=== PATIENT | male | born 1940 | race Caucasian/White ===

== ENCOUNTER 2016-07-30 07:40 | Outpatient (CLI) | payer MEDICARE, OTHER | END 2016-07-30 07:41 | disposition home or self-care (01) | DX: N18.9 Chronic kidney disease, unspecified (principal) ==

== ENCOUNTER 2016-09-26 07:00 | Outpatient (CLI) | payer MEDICARE, OTHER | END 2016-09-26 07:01 | disposition home or self-care (01) | LOC: LAB.R 07:00 | PROVIDERS: ATTEND Internal Medicine | DX: R19.7 Diarrhea, unspecified (principal) ==

== ENCOUNTER 2016-10-30 10:26 | Outpatient (CLI) | payer MEDICARE, OTHER ==
[2016-10-30 15:45] LABS: CALCIUM 9.4 mg/dL (8.5-10.3); CREATININE 1.4 mg/dL (0.6-1.2); POTASSIUM 3.6 mmol/L (3.5-5.0)
[2016-10-30 15:47] LABS: BASOPHILS % (AUTO) 0.6 %; EOSINOPHILS # (AUTO) 0.1 10^3/uL (0.0-0.7); EOSINOPHILS % (AUTO) 1.7 %; HCT - HEMATOCRIT 44.2 % (42.0-52.0); HGB - HEMOGLOBIN 15.1 g/dL (14.0-18.0); LYMPHOCYTES # (AUTO) 0.4 10^3/uL (1.5-3.5); LYMPHOCYTES % (AUTO) 10.7 %; MEAN CORPUSCULAR HEMOGLOBIN 33.1 pg (27.0-31.0); MEAN CORPUSCULAR HGB CONC 34.2 g/dL (32.0-36.0); MEAN PLATELET VOLUME 8.3 fL (7.4-11.4); MONOCYTES # (AUTO) 0.4 10^3/uL (0.0-1.0); MONOCYTES % (AUTO) 9.8 %; NEUTROPHILS # (AUTO) 2.9 10^3/uL (1.5-6.6); NEUTROPHILS % (AUTO) 77.2 %; RED BLOOD COUNT 4.56 10^6/uL (4.70-6.10); RED CELL DISTRIBUTION WIDTH 13.1 % (12.0-15.0); UNCORRECTED WHITE BLOOD COUNT 3.8 x10^3/uL; WHITE BLOOD COUNT 3.8 x10^3/uL (4.8-10.8)
== END 2016-10-30 10:27 | disposition home or self-care (01) ==
LOC: LAB.R 10:26
PROVIDERS: ATTEND Urology
DX: C61 Malignant neoplasm of prostate (principal)
CPT/HCPCS: 80048; 85025

== ENCOUNTER 2017-09-03 10:15 | Outpatient (CLI) | payer MEDICARE, OTHER | END 2017-09-03 10:16 | disposition home or self-care (01) | LOC: LAB 10:15 | PROVIDERS: ATTEND Internal Medicine | DX: C61 Malignant neoplasm of prostate (principal) | CPT/HCPCS: 36415; 84153 ==

== ENCOUNTER 2017-11-24 15:35 | Outpatient (CLI) | payer MEDICARE, OTHER | END 2017-11-24 15:36 | disposition home or self-care (01) | LOC: LAB 15:35 | PROVIDERS: ATTEND Internal Medicine | DX: C61 Malignant neoplasm of prostate (principal) | CPT/HCPCS: 36415; 84153 ==

== ENCOUNTER 2018-03-05 10:03 | Outpatient (CLI) | payer MEDICARE, OTHER | END 2018-03-05 10:04 | disposition home or self-care (01) | LOC: LAB 10:03 | PROVIDERS: ATTEND Internal Medicine | DX: C61 Malignant neoplasm of prostate (principal) | CPT/HCPCS: 36415; 84153 ==

== ENCOUNTER 2018-09-13 10:16 | Outpatient (CLI) | payer MEDICARE, OTHER ==
[2018-09-13 17:21] LABS: CREATININE 1.3 mg/dL (0.6-1.2)
== END 2018-09-13 10:17 | disposition home or self-care (01) ==
LOC: LAB.F 10:16
PROVIDERS: ATTEND Internal Medicine
DX: I10 Essential (primary) hypertension (principal); Z13.9 Encounter for screening, unspecified
CPT/HCPCS: 36415; 82374; 82565; 84132; 84295; 84520

== ENCOUNTER 2019-03-31 09:53 | Outpatient (CLI) | payer MEDICARE, OTHER ==
[2019-03-31 20:42] LABS: PSA TOTAL 0.007 ng/mL (0.000-2.000)
== END 2019-03-31 09:54 | disposition home or self-care (01) ==
LOC: LAB.S 09:53
PROVIDERS: ATTEND Internal Medicine
DX: Z12.5 Encounter for screening for malignant neoplasm of prostate (principal)
CPT/HCPCS: 36415; 84153

== ENCOUNTER 2020-05-23 15:23 | Outpatient (CLI) | payer MEDICARE, OTHER ==
--- NOTE | 2020-05-23 16:07 | XRAY Report ---
PROCEDURE: Chest 2 View X-Ray INDICATIONS: DYSPNEA TECHNIQUE: 2 view(s) of the chest. COMPARISON: None. FINDINGS: Surgical changes and devices: None. Lungs and pleura: Moderate-sized left-sided pleural effusion. Consolidation noted in the left lung ba se which could represent compressive atelectasis, aspiration or pneumonia. Mediastinum: Mediastinal contours are normal. Heart size is normal. Bones and chest wall: No suspicious bony abnormalities. Soft tissues appear unremarkable. IMPRESSION: 1. Moderate-sized left-sided pleural effusion. 2. Left basilar consolidation compatible with compressive atelectasis versus aspiration or pneumonia. Reviewed by: Mary Shirley MD, PhD on 05/23/2020 4:06 PM PST Approved by: Mary Shirley MD, PhD on 05/23/2020 4:06 PM PST Station ID: [id number]
== END 2020-05-23 15:24 | disposition home or self-care (01) ==
LOC: DI.S 15:23
PROVIDERS: ATTEND Internal Medicine
DX: R06.09 Other forms of dyspnea (principal); J90 Pleural effusion, not elsewhere classified

== ENCOUNTER 2020-07-10 08:51 | Outpatient (CLI) | payer MEDICARE, OTHER ==
[2020-07-10 09:14] LABS: BASOPHILS % (AUTO) 0.1 %; EOSINOPHILS % (AUTO) 0.6 %; HCT - HEMATOCRIT 41.4 % (42.0-52.0); HGB - HEMOGLOBIN 13.9 g/dL (14.0-18.0); LYMPHOCYTES % (AUTO) 0.9 %; MEAN CORPUSCULAR HGB CONC 33.6 g/dL (32.0-36.0); MEAN CORPUSCULAR VOLUME 95.2 fL (80.0-94.0); MEAN PLATELET VOLUME 9.1 fL (7.4-11.4); MONOCYTES % (AUTO) 6.4 %; NEUTROPHILS % (AUTO) 87.9 %; PLT - PLATELET COUNT 168 10^3/uL (130-450); RED BLOOD COUNT 4.35 10^6/uL (4.70-6.10); RED CELL DISTRIBUTION WIDTH 14.2 % (12.0-15.0); WHITE BLOOD COUNT 28.1 x10^3/uL (4.8-10.8)
[2020-07-10 09:29] LABS: SLIDE REVIEW? Indicated
[2020-07-10 09:30] LABS: ABNORMAL LYMPHS % (MANUAL) 0 %
[2020-07-10 09:33] LABS: BAND NEUTROPHILS % (MANUAL) 21 %; LYMPHOCYTES # (MANUAL) 0.6 10^3/uL (1.5-3.5); LYMPHOCYTES % (MANUAL) 1 %; NEUTROPHILS # (MANUAL) 25.6 10^3/uL (1.5-6.6); NUCLEATED RBC (MANUAL) 1 %; REACTIVE LYMPHS % (MANUAL) 1 %; WBC MORPHOLOGY (MULTIPLE) 2+ TOXIC GRANULATION (NORMAL)
[2020-07-10 09:35] LABS: DIFFERENTIAL COMMENT MANUAL DIFFERENTIAL
[2020-07-10 09:36] LABS: URIC ACID 7.9 mg/dL (2.6-7.2)
[2020-07-10 16:48] LABS: ALBUMIN 4.4 g/dL (3.2-5.5); ALBUMIN/GLOBULIN RATIO 1.6 (1.0-2.2); BILIRUBIN,TOTAL 0.6 mg/dL (0.2-1.0); CALCIUM 9.8 mg/dL (8.5-10.3); CREATININE 1.4 mg/dL (0.6-1.2); POTASSIUM 3.6 mmol/L (3.5-5.0); TOTAL PROTEIN 7.1 g/dL (6.7-8.2)
== END 2020-07-10 08:52 | disposition home or self-care (01) ==
LOC: LAB 08:51
DX: C82.90 Follicular lymphoma, unspecified, unspecified site (principal)
CPT/HCPCS: 36415; 80053; 83615; 84550; 85025

== ENCOUNTER 2020-07-11 10:56 | Outpatient (CLI) | payer MEDICARE, OTHER ==
[2020-07-11 11:23] LABS: ALBUMIN 4.5 g/dL (3.2-5.5); ALBUMIN/GLOBULIN RATIO 1.6 (1.0-2.2); BILIRUBIN,TOTAL 0.7 mg/dL (0.2-1.0); CALCIUM 10.4 mg/dL (8.5-10.3); CREATININE 1.4 mg/dL (0.6-1.2); POTASSIUM 4.2 mmol/L (3.5-5.0); TOTAL PROTEIN 7.3 g/dL (6.7-8.2); URIC ACID 7.6 mg/dL (2.6-7.2)
== END 2020-07-11 10:57 | disposition home or self-care (01) ==
LOC: LAB 10:56
DX: C82.90 Follicular lymphoma, unspecified, unspecified site (principal)
CPT/HCPCS: 36415; 80053; 83615; 84550

== ENCOUNTER 2020-07-20 09:36 | Outpatient (CLI) | payer MEDICARE, OTHER ==
--- NOTE | 2020-07-20 14:21 | XRAY Report ---
PROCEDURE: Chest 2 View X-Ray INDICATIONS: FOLLICULAR LYMPHOMA TECHNIQUE: 2 view(s) of the chest. COMPARISON: Chest x-ray 05/23/2020 FINDINGS: Surgical changes and devices: None. Lungs and pleura: There is a persistent appearance of moderate left effusion, slightly improved rico red to prior exam. Mediastinum: Mediastinal contours are normal. Heart size is normal. Bones and chest wall: No suspicious bony abnormalities. Soft tissues appear unremarkable. IMPRESSION: Slightly improved appearance of moderate left effusion. As previously noted, underlying areas of mass lesion centered to infection/inflammation or malignancy cannot be excluded. Reviewed by: Coco Neal MD on 07/20/2020 2:20 PM PDT Approved by: Coco Neal MD on 07/20/2020 2:20 PM PDT Station ID: [id number]
== END 2020-07-20 09:37 | disposition home or self-care (01) ==
LOC: DI.S 09:36
PROVIDERS: ATTEND Internal Medicine Hematology & Oncology
DX: J90 Pleural effusion, not elsewhere classified (principal); R91.8 Other nonspecific abnormal finding of lung field

== ENCOUNTER 2020-07-23 16:44 | Outpatient (CLI) | payer MEDICARE, OTHER | END 2020-07-23 16:45 | disposition home or self-care (01) | LOC: COV 16:44 | PROVIDERS: ATTEND Physician Assistant | DX: Z01.812 Encounter for preprocedural laboratory examination (principal); C82.90 Follicular lymphoma, unspecified, unspecified site; Z20.822 Contact with and (suspected) exposure to COVID-19 ==

== ENCOUNTER 2020-10-15 17:19 | Outpatient (CLI) | payer MEDICARE, OTHER | END 2020-10-15 17:20 | disposition home or self-care (01) | LOC: COV 17:19 | PROVIDERS: ATTEND Physician Assistant | DX: Z01.812 Encounter for preprocedural laboratory examination (principal); J91.0 Malignant pleural effusion; Z20.822 Contact with and (suspected) exposure to COVID-19 ==

== ENCOUNTER 2020-12-11 13:52 | Outpatient (CLI) | payer MEDICARE, OTHER | END 2020-12-11 13:53 | disposition home or self-care (01) | LOC: COV 13:52 | PROVIDERS: ATTEND Radiology Diagnostic Radiology | DX: Z01.812 Encounter for preprocedural laboratory examination (principal); Z20.822 Contact with and (suspected) exposure to COVID-19 ==

== ENCOUNTER 2021-01-17 09:44 | Outpatient (CLI) | payer MEDICARE, OTHER ==
--- NOTE | 2021-01-17 14:12 | DEXA Report ---
PROCEDURE: Dexa Spine and/or Hip INDICATIONS: COMPRESSION FRACTURE OF THORACIC VERTEBRA TECHNIQUE: Dual energy x-ray absorptiometry (DXA) was performed on a Divided System. Regions measur ed are the AP Spine, femoral neck, and if needed forearm. COMPARISON: None. FINDINGS: Lumbar Spine: Bone Mineral Density 1.331 g/cm/cm,T score 0.9, normal bone mineral density Left Hip: Bone Mineral Density 0.920 g/cm/cm,T score -1.3, osteopenia Left Femoral Neck: Bone Mineral Density 0.871 g/cm/cm, T score -1.5, osteopenia (T score greater or equal to -1.0: NORMAL) (T score from -1.1 to -2.4: OSTEOPENIA) (T score less than or equal to -2.5 to: OSTEOPOROSIS) Impression: Bone mineral density consistent with osteopenia. Patients with diagnosis of osteoporosis or osteopenia should have regular bone mineral density assess ment. For those eligible for Medicare, routine testing is allowed once every 2 years. Testing frequ ency can be increased for patients who have rapidly progressing disease or for those who are receivin g medical therapy to restore bone mass. Reviewed by: Anand Torres on 01/17/2021 2:11 PM PDT Approved by: Anand Torres on 01/17/2021 2:11 PM PDT Station ID: [id number]
== END 2021-01-17 09:45 | disposition home or self-care (01) ==
LOC: DI 09:44
PROVIDERS: ATTEND Internal Medicine
DX: M48.54XD Collapsed vertebra, not elsewhere classified, thoracic region, subsequent encounter for fracture with routine healing (principal); M85.89 Other specified disorders of bone density and structure, multiple sites

== ENCOUNTER 2021-04-20 08:19 | Emergency (ER) | payer MEDICARE, OTHER ==
--- NOTE | 2021-04-20 08:49 | ED Physician Documentation ---
History of Present Illness - Stated complaint Stated Complaint: RETURN FOR INJECTION - Chief complaint Chief Complaint: General - History obtained from History obtained from: Patient - History of Present Illness Timing: Other (Patient here for newly released monoclonal antibody treatment for prophylaxis of COVID. This had been prearranged in the pharmacy had cleared it yesterday.) Review of Systems Constitutional: denies: Fever, Chills Nose: denies: Rhinorrhea / runny nose, Congestion Throat: denies: Sore throat Respiratory: denies: Cough GI: denies: Vomiting, Diarrhea PD PAST MEDICAL HISTORY - Past Medical History Past Medical History: Yes Cardiovascular: None Respiratory: None - Allergies Allergies/Adverse Reactions: Allergies Allergy/AdvReac Type Severity Reaction Status Date / Time No Known Drug Allergies Allergy Verified 04/20/21 08:38 PD ED PE NORMAL - Vitals Vital signs reviewed: Yes - General General: Alert and oriented X 3, No acute distress, Well developed/nourished - Cardiac Cardiac: RRR, No murmur - Respiratory Respiratory: Clear bilaterally - Derm Derm: Normal color, Warm and dry - Neuro Neuro: Alert and oriented X 3, No motor deficit, Normal speech Results - Vitals Vitals: Vital Signs - 24 hr 04/20/21 04/20/21 04/20/21 08:32 09:34 10:00 Temperature 36.5 C Heart Rate 58 L 53 L 46 L Respiratory 15 21 19 Rate Blood Pressure 179/62 H 156/110 H 132/64 H O2 Saturation 99 98 98 04/20/21 04/20/21 10:30 10:41 Temperature 36.6 C Heart Rate 56 L Respiratory 22 Rate Blood Pressure 132/71 H O2 Saturation 99 Oxygen O2 Source Room air PD MEDICAL DECISION MAKING - ED course Complexity details: re-evaluated patient (no problems after appropriate protocol waiting time. ), considered differential, d/w patient Departure - Departure Disposition: Home, Self Care Clinical Impression: Medication administered Condition: Stable Record reviewed to determine appropriate education?: Yes Follow-Up: Bharathi Varma MD [Primary Care Provider] - Comments: Continue with your usual providers and medications etc. Return if problems in the next day or two related to the injection. Discharge Date/Time: 04/20/21 10:47
[2021-04-20] MEDS: TIXAGEVIMAB IM STA (09:32)
[2021-04-20] MEDS: CILGAVIMAB IM STA (09:32)
[2021-04-20 10:36] VITALS: BP 132/71
== END 2021-04-20 10:47 | disposition home or self-care (01) ==
LOC: ED 08:19
DX: Z29.8 Encounter for other specified prophylactic measures (principal)
CPT/HCPCS: M0220; Q0220

== ENCOUNTER 2021-08-29 08:00 | Outpatient (CLI) | payer MEDICARE, OTHER | END 2021-08-29 23:59 | disposition home or self-care (01) | LOC: LAB.S 08:00 | PROVIDERS: ATTEND Physician Assistant | DX: Z85.46 Personal history of malignant neoplasm of prostate (principal) | CPT/HCPCS: 36415; 84153 ==